=== PATIENT | female | born 2000 | race Caucasian/White ===

== ENCOUNTER 2019-02-28 05:22 | Day surgery (SDC) | payer OTHER ==
[2019-02-28] MEDS: LACTATED RINGER'S 1,000 ML IV (07:04)
[2019-02-28] MEDS ORDERED: ROCURONIUM 50 MG INJ (07:47)
[2019-02-28] MEDS ORDERED: PROPOFOL 20 ML (07:47)
[2019-02-28] MEDS ORDERED: LIDOCAINE 2% (SDV) 5 ML INJ (07:47)
[2019-02-28] MEDS ORDERED: MIDAZOLAM 1 MG/ML 2 ML INJ (07:47)
[2019-02-28] MEDS ORDERED: CEFAZOLIN 1 GM INJ (07:55)
[2019-02-28] MEDS ORDERED: ONDANSETRON 4 MG INJ (07:56)
[2019-02-28] MEDS ORDERED: LABETALOL HCL 20MG INJ IV (08:00)
[2019-02-28] MEDS ORDERED: ONDANSETRON 4 MG INJ IV (08:00)
[2019-02-28] MEDS ORDERED: ROPIVACAINE 0.5 % 30 ML VIAL (08:39)
[2019-02-28] MEDS ORDERED: SUGAMMADEX SODIUM 200 MG/2 ML VIAL IV (08:59)
[2019-02-28] MEDS: HYDROmorphONE 1 MG/5 ML IV SYRINGE IV ×3 (09:14→09:42)
== END 2019-02-28 10:38 | disposition home or self-care (01) ==
LOC: SDS 05:22
DX: N80.1 Endometriosis of ovary (principal)
CPT/HCPCS: 58662; 88305